=== PATIENT | male | born 1995 | race Caucasian/White ===

== ENCOUNTER 2020-05-18 12:01 | Outpatient (REF) | payer OTHER, SELFPAY ==
[2020-05-18 13:03] LABS: Hematocrit 45.4 % (42-52); Hemoglobin 15.3 g/dl (14.0-18.0); Mean Corpuscular HGB Conc 33.7 g/dl (31.0-36.0); Mean Corpuscular Hemoglobin 30.4 pg (27.0-33.0); Mean Corpuscular Volume 90.1 fL (80-98); Mean Platelet Volume 11.5 fL (9.4-12.4); Platelet Count 195 X10*3/uL (160-400); Red Blood Count 5.04 X10*6/uL (4.60-5.80); Red Cell Distribution Width 12.1 % (11.0-16.0); White Blood Count 5.5 X10*3/uL (4.8-10.8)
[2020-05-18 13:14] LABS: Alanine Aminotransferase 15 U/L (0-40); Albumin Level 4.8 g/dL (3.5-5.0); Alkaline Phosphatase 79 U/L (39-117); Anion Gap 14 (12-20); Aspartate Amino Transferase 13 U/L (5-37); Bilirubin Direct 0.2 mg/dL (0.0-0.5); Bilirubin Total 0.6 mg/dL (0.0-1.0); Blood Urea Nitrogen 15 mg/dL (9-16); Calcium 9.3 mg/dL (8.4-10.2); Carbon Dioxide 25 mmol/L (22-29); Chloride 107 mmol/L (96-108); Estimated Glomerular Filt Rate > 60; Glucose Random 89 mg/dL (60-115); Potassium 4.5 mmol/l (3.3-5.1); Sodium 141 mmol/L (135-145); Total Protein 7.1 g/dL (6.5-8.0)
[2020-05-18 13:35] LABS: Thyroid Stimulating Hormone 1.08 uIU/mL (0.32-4.0)
== END 2020-05-18 12:02 | disposition home or self-care (01) ==
LOC: HO.LAB 12:01
PROVIDERS: PCP Internal Medicine; Visit Provider Internal Medicine
DX: Z00.01 Encounter for general adult medical examination with abnormal findings (principal); F41.1 Generalized anxiety disorder
CPT/HCPCS: 36415; 80048; 80076; 84443; 85027

== ENCOUNTER 2024-07-10 08:17 | Outpatient (AMB) | payer OTHER, SELFPAY ==
--- NOTE | 2024-07-10 08:27 | A.OFFPC_ITS ---
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 Transferring care to Dr Hayes. Lead Android Developer Required: No Standards Analyst: Not Required per policy Accompanied by: Self / Same As Patient Allergies No Known Allergies Allergy (Verified 07/10/24 09:05) Tobacco use date assessed: 07/10/24 Dental Screening Dental Screen Date: 07/10/24 Did you have a dental visit in the last 12 months?: Yes Did you have a dental problem in the last 6 months where you did not have access to dental care?: No Was dental information given to patient?: Patient has dentist [facility] Surgical History History of thoracic surgery Family History Mother No problems noted. Father No problems noted. Other Mental health disorder Substance use disorder Social History Housing: Condominium Alcohol intake: current Alcohol intake frequency: a few times a month Patient Tobacco Use Status: Current everyday Tobacco user Tobacco use type: Cigarette Cigarette Packs Per Day: 0.5 Cigarettes Per Day: 10 e-Cigarette/Vaping Use: Never Used Second Hand Smoke Exposure: Yes service: No Current occupational status: employed Current occupation: [employer] Cognitive needs: No Hearing needs: No Vision needs: No Questionnaire PHQ-9 Over the last 2 weeks, how often have you been bothered by any of the following problems? 1. Little interest or pleasure in doing things: several days 2. Feeling down, depressed, or hopeless: several days 3. Trouble falling or staying asleep, or sleeping too much: several days 4. Feeling tired or having little energy: several days 5. Poor appetite or overeating: several days 6. Feeling bad about yourself - or that you are a failure or have let yourself or your family down: several days 7. Trouble concentrating on things, such as reading the newspaper or watching television: several days 8. Moving or speaking so slowly that other people could have noticed. Or the opposite - being so fidgety or restless that you have been moving around a lot more than usual: more than half the days 9. Thoughts that you would be better off or of hurting yourself in some way: not at all Total score: 9 Depression Screening Interpretation: Positive Depression Screening Done: Yes Source: Developed by Drs. Vivek Cid, Susanna Dickey, Devonte Byrd and colleagues, with an educational chery from [employer] Thrive Questionnaire Date Thrive assessed: 07/10/24 I am a: Patient What is your living situation today?: I have a steady place to live Within the past 12 months, did the food you bought not last and you didn't have the money to get more?: Never true Within the past 12 months, did you worry whether your food would run out before you got money to buy more?: Never true Do you have trouble paying for medicines?: No Do you have trouble getting transportation to medical appointments?: No Do you have trouble paying your heating and electricity bill?: No Do you have trouble taking care of your child, family member or friend?: No Do you have trouble with day-to-day activities such as bathing, preparing meals, shopping, managing finances, etc.?: No Are you currently unemployed and looking for a job?: No Are you interested in more education?: No Please select the resources that you would like help with: None Currently or been in a relationship where the following occur: No concerns reported THRIVE Score: 0 AUDIT C Alcohol Use Questionnaire (AUDIT-C) 1. How often do you have a drink containing alcohol?: Monthly or less 2. How many drinks containing alcohol do you have on a typical day when you are drinking?: 1 or 2 3. How often do you have six or more drinks on one occasion?: Never Total Score: 1 ANEL-7 AMB Questionnaire ANEL-7 Date ANEL - 7 assessed: 07/10/24 Feeling nervous, anxious, or on edge: 3 = Nearly every day Not being able to stop or control worryin = Nearly every day Worrying too much about different things: 3 = Nearly every day Trouble relaxin = Several days Being so restless that it is hard to sit still: 0 = Not at all Becoming easily annoyed or irritable: 2 = More than half the days Feeling afraid as if something awful might happen: 1 = Several days Total ANEL-7 score (0-4 normal; 5-9 mild; 10-14 moderate; 15-21 severe): 13 Source: Developed by Drs. Vivek Cid, Susanna Dickey, Devonte Byrd and colleagues, with an educational chery from [employer] Physical exam (Primary Care) Vital Signs: Last Vital Signs Temp 97.1 F 07/10/24 08:31 Pulse 70 07/10/24 08:31 BP 120/64 07/10/24 08:31 Pulse Ox 97 07/10/24 08:31 Oxygen Delivery Method Room Air 07/10/24 08:31 BMI result Body Mass Index 21.1 Tobacco/Smoking Status: Tobacco use Status Tobacco use date assessed 07/10/24 07/10/24 08:39 Patient Tobacco Use Status Current everyday Tobacco 07/10/24 08:39 Tobacco use type Cigarette 07/10/24 08:39 e-Cigarette/Vaping Use Never Used 07/10/24 08:39 PHQ-9: PHQ-9 Score PHQ-9: Total score 9 07/10/24 08:30 Depression Screening Interpretation: Positive Thrive Assessment: Date of Thrive Assessment Date Thrive assessed 07/10/24 07/10/24 08:30 Currently or been in a relationship where the following occur: No concerns reported Coding Level of Care Code New Pt Level 4 (58293) Complex EM visit Add On G2211 Diagnoses Generalized anxiety disorder F41.1 Assessment & Plan Assessment & Plan (1) Generalized anxiety disorder: Comment: Patient also has general anxiety disorder. His sleep patterns are normal. Code(s): F41.1 - Generalized anxiety disorder Category: Medical Plan: Currently on no medications.... Plan History of Present Illness The patient is a 28-year-old male presenting with anxiety-related concerns. 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 Last February, an episode suggestive of a panic attack was experienced, but he could not identify a specific trigger. His anxiety management in the past involved citalopram, but poor adherence to medication limits its assessment. Sleep disturbance coincided with his job shift to nights, compounded by family obligations during typical sleeping hours. Though he functions well at work, he struggles with daily life motivation and household responsibilities. A transition to a less socially interactive employment is anticipated to align better with his comfort levels. The patient lives with his grandmother and father, forming a supportive, albeit somewhat stress-inducing environment. Social History - Employment: Full-time at a [employer] since May 2021. - Housing: Lives with grandmother and father in his own home. - Substance Use: Tobacco use, approximately half a pack per day; very rare use of alcohol and marijuana. - Social Support: Minimal, aside from online interactions associated with video games. - Family Structure: No siblings; distant relationship with mother due to her mental health issues. - Sleep: Disturbed sleep pattern due to night shifts and family demands. - Recreational Activities: Engages in video garfield for social interaction. Review of Systems - Psychiatric: Reports anxiety, loss of appetite, and weight loss; denies mood swings. - Constitutional: Denies difficulty urinating. Physical Exam General: Appearance normal, both eyes and all related structures Nutritional Appearance: Patient has lost a lot of weight Orientation/consciousness: Patient oriented x3 Limitations: No limitations Head: Normal to inspection Neck: Normal visual inspection Chest: Normal palpation of entire chest wall Respiratory: Normal respiratory effort Neurology: Patient oriented x3 Results Plan For anxiety, the patient prefers non-medication treatments given past non- compliance with citalopram. Consideration for a job transition to reduce anxiety was approved. Encouragement was provided to reduce tobacco use, supporting cessation efforts. Baseline blood work will be conducted to explore underlying causes of weight loss. Sleep hygiene techniques are advised to improve rest despite night shifts. Patient was informed and verbally consented to the use of an ambient scribe for clinic note documentation during this visit. Discussion Notes During the consultation, we discussed the patient's mild anxiety and lifestyle preferences. I acknowledged the patient's goal to reduce anxiety through environmental changes, primarily by shifting job roles. I emphasized the importance of consistently managing anxiety without medication. Smoking cessation support was recommended due to the potential benefits. We reviewed the importance of maintaining contact through patient portal communications for ongoing assessment or arising concerns. I advised on routine wellness checks and monitoring health indicators like weight and sleep quality. Patient Instructions - Attempt to create a work environment that minimizes stressful social interactions. - Aim to quit or reduce smoking; explore available resources for cessation support. - Follow up with recommended blood tests. - Maintain annual check-ups and use the patient portal for non-urgent communication. - Incorporate strategies to manage sleep disturbances, especially considering current work schedule. - Reach out if heightened anxiety or other concerning symptoms arise.
[2024-07-10 08:31] VITALS: BP 120/64; PULSE 70; TEMP 36.2; O2SAT 97; BMI 21.1
--- OUTSIDE RECORDS SUMMARY | 2024-07-10 08:36 | XMS_ITS | Encounter Summary ---
Author Organization [facility] Address [address] [place] [address] Phone Care Team Providers Care Grader Meat Name Role Phone Mihir Hernandez MD Primary Care Provider Encounter Details Date Type Department Care Team (Late st Contact Info) Description 12/21/2016 Conversion Encounter [facility] [place] [address] [place] [address] Social History Tobacco Use Types Packs/Day Years Used Date Smoking Tobacco: Never Comments:Never smoker Sex and Gender Information Value Date Recorded Sex Assigned at Not on file Legal Sex Male 5:12 PM EDT Gender Identity Not on file Sexual Orientation Not on file documented as of this encounter Plan of Treatment Not on file documented as of this encounter Visit Diagnoses Not on filedocumented in this encounter Care Teams Grader Meat Relationship Specialty Start Date End Date Mihir Hernandez MD [address] [place] [address] PCP - General 12/15/16 08/17/22 documented as of this encounter
--- OUTSIDE RECORDS SUMMARY | 2024-07-10 08:36 | XMS_ITS | Encounter Summary ---
Author Organization [facility] Address [address] [place] [phone] Phone Care Team Providers Care Cuff Turner Machine Operator Name Role Phone Mihir Hernandez MD Primary Care Provider [phone] Encounter Details Date Type Department Care Team (Late st Contact Info) Description 02/22/2012 Documentation [facility] [place] [address] [place] [address] Family Medicine, Physician [address] [place], [place] [address] Social History Tobacco Use Types Packs/Day Years Used Date Smoking Tobacco: Never Assessed Sex and Gender Information Value Date Recorded Sex Assigned at Not on file Legal Sex Male 5:12 PM EDT Gender Identity Not on file Sexual Orientation Not on file documented as of this encounter Plan of Treatment Not on file documented as of this encounter Visit Diagnoses Not on filedocumented in this encounter Care Teams Cuff Turner Machine Operator Relationship Specialty Start Date End Date Mihir Hernandez MD [address] [place] [address] [place] [id number] PCP - General 12/15/16 08/17/22 documented as of this encounter
--- OUTSIDE RECORDS SUMMARY | 2024-07-10 08:36 | XMS_ITS | Clinical Summary ---
Author Organization [facility] Address [address] [place] [phone] Phone Care Team Providers Care Mathematics Department Chair Name Role Phone Unavailable Primary Care Provider Unavailabl e Immunizations Immunization Administration Dates Next Due DTP 04/11/1996,02/06/1996,1995 DTaP 5 11/09/2000,05/08/1997 HPV Vaccine 9 Valent 02/04/2016,02/11/2015,01/08 Hep A, Adult 02/04/2016,01/08/2015 Hep B, ped/adol 04/11/1996,1995,1995 Hib (PRP-T) 01/07/1997, 6,02/06/1996,12/04 IPV 11/09/2000 Influenza, injectable, quadr ivalent, preservative free 02/04/2016 MMR 11/04/1999,10/06/1996 Meningococcal Conj (Menactra) MCV4P 02/04/2016,0 11/27/2007 OPV 04/11/1996,02/06/1996,1995 Tdap 11/27/2007 Varicella 08/19/2013,12/06/1998 Family History Relation Name Status Comments Mother Alive Mother: Alcohol ism, mentalhealth issues Social History Tobacco Use Types Packs/Day Years Used Date Smoking Tobacco: Never Comments:Never smoker Sex and Gender Information Value Date Recorded Sex Assigned at Not on file Legal Sex Male 5:12 PM EDT Gender Identity Not on file Sexual Orientation Not on file Last Filed Vital Signs Vital Sign Reading Time Taken Comments Blood Pressure 106/71 07/19/2016 12:00 AM EDT Pulse 87 07/19/2016 12:00 AM EDT Temperature 36.8 ??C (98.2 ??F) 06/28/2016 12:[address] Respiratory Rate - - Oxygen Saturation - - Inhaled Oxygen Concentration - - Weight 86.6 kg (191 lb) 07/19/2016 12:00 AM EDT Height 188 cm (6' 2 ) 06/28/2016 12:00 AM EST Body Mass Index 24.52 06/28/2016 12:00 AM EST Plan of Treatment Health Maintenance Due Date Last Done Comments DTaP,Tdap,and Td Vaccines (7 - Td or Tdap) 11/26/2017 11/27/2007, 11/09/2000, 05/08/1997, Additional history exists Influenza Vaccines (#1) 2023 02/04/2016 COVID-19 Vaccine ( season) 2024 Hepatitis B Vaccines Completed 04/11/1996, 1995, 1995 HIB Vaccines Completed 01/07/1997, 10/1995, 02/06/1996, Additional history exists MMR Vaccines Completed 11/04/1999, 10/06/1996 IPV Vaccines Completed 11/09/2000, 10/1995, 02/06/1996, Additional history exists Varicella Vaccines Completed 08/19/2013, 12/06/1998 HPV Vaccines Completed 02/04/2016, 12/2014, 01/08/2015 Hepatitis A Vaccines Aged Out 02/04/2016, 01/09/20 15 No longer eligible based on patient's age to complete this topic Meningococcal Vaccine Aged Out 02/04/2016, 008 No longer eligible based on patient's age to complete this topic Men B Vaccine Aged Out No longer elig ible based on patient's age to complete this topic Pneumococcal Vaccine Aged Out No long er eligible based on patient's age to complete this topic
== END 2024-07-10 09:58 | disposition home or self-care (01) ==
PROVIDERS: PCP Internal Medicine; Visit Provider Internal Medicine
DX: F41.1 Generalized anxiety disorder (principal)

== ENCOUNTER → 2024-07-10 08:17 | Outpatient (BNVA) | payer OTHER, SELFPAY | PROVIDERS: PCP Internal Medicine; Visit Provider Internal Medicine | DX: F41.1 Generalized anxiety disorder (principal) | CPT/HCPCS: 99202 ==